=== PATIENT | male | born 1950 | race Caucasian/White ===

== ENCOUNTER → 2020-02-28 13:07 | Outpatient (CLI) | payer OTHER, SELFPAY ==
--- NOTE | 2020-02-28 | DI.MRI.S_ITS ---
PROCEDURE: MR LUMBAR SPINE WO CON INDICATIONS: Low back pain TECHNIQUE: Noncontrast sagittal T1 spin echo and T2 fast echo, sagittal STIR, axial T1 and T2 fast spin echo through the lumbar spine. In cases with scoliosis, additional coronal T2 fast spin echo may be performed. COMPARISON: None. FINDINGS: Image quality: Excellent. Alignment and Curvature: There is normal bony alignment. Bone Marrow: Marrow is of normal overall signal. No acute vertebral body compression fractures. Spinal Cord: Conus medullaris terminates at the L1-L2 level. Visualized cord demonstrates normal signal and size. Paraspinous Soft Tissues: No paravertebral masses. T12-L1: Mild disc bulge. No canal stenosis or foraminal stenosis. L1-L2: Normal appearance. L2-L3: Minimal disc bulge. Mild facet hypertrophy. Mild left foraminal narrowing. L3-L4: Moderate multifactorial canal stenosis secondary to disc bulge and facet and ligament hypertrophy. Mild bilateral foraminal stenosis. L4-L5: Mild multifactorial canal stenosis secondary to mild disc bulge and facet and ligament hypertrophy. No foraminal stenosis. L5-S1: Diffuse disc bulge. Facet and ligament hypertrophy. Mild canal stenosis. Moderate bilateral foraminal stenosis with mild flattening deformity on the exiting bilateral L5 nerve roots. IMPRESSION: 1. Multilevel canal stenosis is moderate at L3-L4 , mild at L4-L5, and mild at L5-S1. 2. Moderate bilateral foraminal narrowing at L5-S1. Dictated by: Chano Hooper M.D. on 02/28/2020 at 14:40 Approved by: Chano Hooper M.D. on 02/28/2020 at 14:44
== END ==
PROVIDERS: Referring Provider Physician Assistant Surgical; Visit Provider Physician Assistant Surgical
DX: M54.5 Low back pain (principal); M48.061 Spinal stenosis, lumbar region without neurogenic claudication; M48.07 Spinal stenosis, lumbosacral region
CPT/HCPCS: 72148